=== PATIENT | female | born 1955 | race Caucasian/White ===

== ENCOUNTER → 2017-08-28 | Outpatient (CLI) | payer OTHER | END | disposition home or self-care (01) | LOC: CFH 08:02 | PROVIDERS: ATTEND Nurse Practitioner Family | DX: Z12.31 Encounter for screening mammogram for malignant neoplasm of breast (principal); Z13.820 Encounter for screening for osteoporosis; M85.88 Other specified disorders of bone density and structure, other site | CPT/HCPCS: 77080; 77067 ==

== ENCOUNTER 2020-01-13 07:42 | Outpatient (CLI) | payer OTHER | END 2020-01-13 23:59 | disposition home or self-care (01) | LOC: CFH 07:42 | PROVIDERS: ATTEND Nurse Practitioner Family | DX: R92.8 Other abnormal and inconclusive findings on diagnostic imaging of breast (principal); N63.20 Unspecified lump in the left breast, unspecified quadrant; R22.2 Localized swelling, mass and lump, trunk | CPT/HCPCS: 76604; 77066; G0279 ==

== ENCOUNTER → 2020-11-02 | Outpatient (CLI) | payer BC | END | disposition home or self-care (01) | LOC: CFH 14:02 → EDSTATUS 14:30 | PROVIDERS: ATTEND Internal Medicine Hematology & Oncology | DX: K80.20 Calculus of gallbladder without cholecystitis without obstruction (principal); D69.3 Immune thrombocytopenic purpura | CPT/HCPCS: 76700 ==